=== PATIENT | female | born 1950 | race Caucasian/White ===

== ENCOUNTER → 2017-02-08 | Outpatient (CLI) | payer MEDICARE ==
[2017-02-08 10:29] LABS: Basophils # (A) 0.1 k/uL (0-0.2); Basophils % (A) 1 %; CH 28.7; CHCM 31.3; Eosinophils # (A) 0.3 k/uL (0-0.7); Eosinophils % (A) 3 %; HCT 46.2 % (34.0-46.0); HDW 2.84; HGB 15.3 gm/dL (11.4-16.0); Hypochromasia Slight; Luc # (Auto) 0.37; Luc % (Auto) 3; Lymphocytes # (A) 2.9 k/uL (1.0-4.8); Lymphocytes % (A) 25 %; MCH 30.5 pg (25.0-35.0); MCHC 33.1 g/dL (31.0-37.0); MCV 92.3 fL (80.0-100.0); Mean Platelet Volume 6.9; Monocytes # (A) 0.9 k/uL (0-1.0); Monocytes % (A) 8 %; Neutrophils # (A) 6.9 k/uL (1.3-7.7); Neutrophils % (A) 60 %; WBC 11.5 k/uL (3.8-10.6); WBC (Perox) 11.21
[2017-02-08 10:51] LABS: ALT 63 U/L (9-52); AST 47 U/L (14-36); Alkaline Phosphatase 192 U/L (38-126); Anion Gap 11 mmol/L; Blood Urea Nitrogen 15 mg/dL (7-17); Calcium 9.2 mg/dL (8.4-10.2); Carbon Dioxide 24 mmol/L (22-30); Chloride 108 mmol/L (98-107); Cholesterol 137 mg/dL (<200); Glucose 96 mg/dL (74-99); HDL Cholesterol 32 mg/dL (40-60); Non-African American GFR(MDRD) >60 (>60 ml/min/1.73 sqM); Potassium 3.7 mmol/L (3.5-5.1); Sodium 143 mmol/L (137-145); Total Bilirubin 0.3 mg/dL (0.2-1.3); Total Protein 6.8 g/dL (6.3-8.2)
== END | disposition home or self-care (01) ==
LOC: LABWHC1 09:33
PROVIDERS: ATTEND Family Medicine
DX: Z00.00 Encounter for general adult medical examination without abnormal findings (principal); F41.9 Anxiety disorder, unspecified; I10 Essential (primary) hypertension; M10.9 Gout, unspecified; Z86.718 Personal history of other venous thrombosis and embolism; Z13.29 Encounter for screening for other suspected endocrine disorder; Z13.220 Encounter for screening for lipoid disorders; Z13.21 Encounter for screening for nutritional disorder
CPT/HCPCS: 36415; 80053; 80061; 82306; 84443; 84550; 85025

== ENCOUNTER → 2018-05-12 | Outpatient (CLI) | payer MEDICARE ==
--- NOTE | 2018-05-15 13:42 | MM ---
Reason for exam: additional evaluation requested from prior study. Last mammogram was performed 4 years and 6 months ago. History: Patient is postmenopausal. Family history of breast cancer in paternal aunt and breast cancer in sister at age 66. Core biopsy, 2012. Benign US right guided VAD of the right breast, September 07, 2009. Cancelled Right US Needle Biopsy of the right breast, August 23, 2008. Benign left breast exciisional biopsy age 16. Physical Findings: Nurse did not find any significant physical abnormalities on exam. MG 3D Diag Mammo W/Cad GEOVANNY Bilateral CC, MLO, and XCCL view(s) were taken. Prior study comparison: November 02, 2013, right breast MG diagnostic mammo RT w CAD. February 19, 2013, [facility] DIGITAL RIGHT MAMMOGRAM w/CAD. The breast tissue is heterogeneously dense. This may lower the sensitivity of mammography. There is a 5 x 9 mm lower outer quadrant mass in the left breast 13 cm from the nipple that is new. There are benign-appearing bilateral calcifications. No suspicious right breast abnormality. ASSESSMENT: Incomplete: need additional imaging evaluation, BI-RAD 0 RECOMMENDATION: Ultrasound of the left breast.
--- NOTE | 2018-05-15 13:53 | USB ---
History: Patient is postmenopausal. Family history of breast cancer in paternal aunt and breast cancer in sister at age 66. Core biopsy, 2013. Benign US right guided VAD of the right breast, September 07, 2009. Cancelled Right US Needle Biopsy of the right breast, August 23, 2008. US Breast Limited LT Left limited breast ultrasound including focal area of concern, retroareolar and axilla demonstrates a 0.6 x 0.3 x 0.4 cm cystic cluster. Although no increased through transmission is seen and this finding is new on mammography. biopsy is recommended. Correlate with post biopsy images for concordant marker placement. These results were verbally communicated with the patient and result sheet given to the patient on 05/12/18. ASSESSMENT: Suspicious, BI-RAD 4 RECOMMENDATION: Ultrasound core biopsy of the left breast. Called Dr. Pritchett with mammographic findings and has scheduled an appointment for the patient for 05/19/18 at 10:[address] Pritchett. PRELIMINARY REPORT CALLED AND FAXED TO DR. PRITCHETT ON 05/12/18
== END | disposition home or self-care (01) ==
LOC: RADMAMWWP 06:53
PROVIDERS: ATTEND Surgery
DX: Z08 Encounter for follow-up examination after completed treatment for malignant neoplasm (principal); Z85.3 Personal history of malignant neoplasm of breast
CPT/HCPCS: 77066; 76642; G0279; 77062

== ENCOUNTER → 2018-06-16 | Day surgery (SDC) | payer MEDICARE ==
[2018-06-16 12:21] VITALS: RESP 16; BMI 43.5
[2018-06-16 13:32] VITALS: BP 129/81; PULSE 71; TEMP 98
--- NOTE | 2018-06-16 22:19 | USB ---
EXAMINATION TYPE: US biopsy breast VAD LT DATE OF EXAM: 06/16/2018 CLINICAL HISTORY: 60-year-old female R92.8 Abnormal mammogram. TECHNIQUE: Ultrasound guided core biopsy of the left breast. COMPARISON: 05/12/2018 FINDINGS: The procedure of ultrasound guided core biopsy was explained to the patient. Benefits, alternatives, and risks were discussed. An informed consent was then obtained. The left breast 5:00 cyst cluster versus complex cyst is targeted for biopsy. The patient was placed in supine positioning for imaging and for the procedure. The overlying skin was prepped and draped in usual sterile fashion. Lidocaine buffered with bicarbonate was used as anesthetic into the skin and subcutaneous tissue up to area of concern in the left breast. Under ultrasound guidance, a 13-gauge vacuum-assisted biopsy gun device was used to obtain 3 core samples. Following this, a ribbon clip was left in lesion. The patient tolerated the procedure well without any immediate complication. The patient was kept in the radiology department for short stay after the procedure and then discharged home in stable condition. IMPRESSION: Successful, uncomplicated ultrasound guided core biopsy of complex cyst versus cyst cluster in the 5:00 left breast; full pathology results to follow. Pathology Results: Benign LEFT BREAST, ULTRASOUND GUIDED CORE BIOPSY: Fibrocystic changes including sclerosing adenosis, mild usual type ductal hyperplasia, fibrosis, cysts, and apocrine metaplasia. Recommendation Follow up mammogram of the left breast in 6 months. EKATERINA
--- NOTE | 2018-06-17 07:11 | MM ---
Reason for exam: additional evaluation requested from abnormal screening. Last mammogram was performed 1 month ago. History: Patient is postmenopausal. Family history of breast cancer in paternal aunt and breast cancer in sister at age 66. Core biopsy, 2012. Benign US right guided VAD of the right breast, September 07, 2009. Cancelled Right US Needle Biopsy of the right breast, August 23, 2008. MG Diagnostic Mammo LT Wo CAD CC and ML view(s) were taken of the left breast. Prior study comparison: May 12, 2018, bilateral MG 3d diag mammo w/cad GEOVANNY. November 02, 2013, right breast MG diagnostic mammo RT w CAD. ASSESSMENT: Post procedure mammogram for marker placement RECOMMENDATION: Ultrasound of the left breast in 6 months. PENDING PATHOLOGY RESULTS.
== END | disposition home or self-care (01) ==
LOC: RADUSWWP 11:38
PROVIDERS: ATTEND Student in an Organized Health Care Education/Training Program
DX: N60.22 Fibroadenosis of left breast (principal); N60.82 Other benign mammary dysplasias of left breast; N60.02 Solitary cyst of left breast
CPT/HCPCS: 88305; 77065; 19083; A4648; J2001

== ENCOUNTER → 2019-01-12 | Outpatient (CLI) | payer MEDICARE ==
--- NOTE | 2019-01-12 10:23 | MM ---
Reason for exam: follow-up at short interval from prior study. Last mammogram was performed 7 months ago. History: Patient is postmenopausal. Family history of breast cancer in paternal aunt and breast cancer in sister at age 66. Benign US biopsy breast VAD LT of the left breast, June 16, 2018. Core biopsy, 2012. Benign US right guided VAD of the right breast, September 07, 2009. Cancelled Right US Needle Biopsy of the right breast, August 23, 2008. Physical Findings: Nurse did not find any significant physical abnormalities on exam. MG 3D Diag Mammo W/Cad LT CC and MLO view(s) were taken of the left breast. Prior study comparison: June 16, 2018, left breast MG diagnostic mammo LT wo CAD. May 12, 2018, bilateral MG 3d diag mammo w/cad GEOVANNY. There is chronic nodularity in the left breast. Benign secretory calcifications. 4 o'clock ribbon clip from biopsy 7 months ago. No significant new findings when compared with previous films. These results were verbally communicated with the patient and result sheet given to the patient on 01/12/19. ASSESSMENT: Benign, BI-RAD 2 RECOMMENDATION: Routine screening mammogram of both breasts in 5 months. Back on schedule.
== END ==
LOC: RADMAMWWP 09:37
PROVIDERS: ATTEND Student in an Organized Health Care Education/Training Program
DX: R92.8 Other abnormal and inconclusive findings on diagnostic imaging of breast (principal)
CPT/HCPCS: 77065; G0279; 77061

== ENCOUNTER → 2019-10-23 | Outpatient (CLI) | payer MEDICARE ==
--- NOTE | 2019-10-23 11:16 | MM ---
Reason for exam: screening (asymptomatic). Last mammogram was performed 9 months ago. History: Patient is postmenopausal. Family history of breast cancer in paternal aunt and breast cancer in sister at age 66. Benign US biopsy breast VAD LT of the left breast, June 16, 2018. Core biopsy, 2012. Benign US right guided VAD of the right breast, September 07, 2009. Cancelled Right US Needle Biopsy of the right breast, August 23, 2008. Physical Findings: A clinical breast exam by your physician is recommended on an annual basis and results should be correlated with mammographic findings. MG 3D Screening Mammo W/Cad Bilateral CC and MLO view(s) were taken. Prior study comparison: January 12, 2019, left breast MG 3d diag mammo w/cad LT. June 16, 2018, left breast MG diagnostic mammo LT wo CAD. The breast tissue is heterogeneously dense. This may lower the sensitivity of mammography. Stable benign calcifications. There is no discrete abnormality. No significant changes when compared with prior studies. ASSESSMENT: Benign, BI-RAD 2 RECOMMENDATION: Routine screening mammogram of both breasts in 1 year.
== END | disposition home or self-care (01) ==
LOC: RADMAMWWP 07:28
PROVIDERS: ATTEND Student in an Organized Health Care Education/Training Program
DX: Z12.31 Encounter for screening mammogram for malignant neoplasm of breast (principal)
CPT/HCPCS: 77063; 77067

== ENCOUNTER → 2020-06-09 | Outpatient (CLI) | payer MEDICARE ==
[2020-06-09 14:44] LABS: African American GFR (CKD) 65.2 (60.0-200.0); Albumin 4.8 g/dL (3.80-4.90); Anion Gap 11.1 mmol/L (4.00-12.00); Calcium 10.1 mg/dL (8.7-10.3); Carbon Dioxide 27.9 mmol/L (21.6-31.8); Chol/HDL Ratio 4.66; Globulin 2.4 g/dL (1.6-3.3); LDL Cholesterol,Calculated 125.6 mg/dL (0.0-131.0); Non-African American GFR(CKD) 56.2 (60.0-200.0); Potassium 3.6 mmol/L (3.5-5.5); Total Bilirubin 0.8 mg/dL (0.2-1.2); Total Protein 7.2 g/dL (6.2-8.2); VLDL Calculation 35.4 mg/dL (5.00-40.00)
[2020-06-09 14:49] LABS: Basophils % (A) 0.8 %; Eosinophils # (A) 0.22 X 10*3/uL (0.04-0.35); Eosinophils % (A) 1.8 %; HCT 53.6 % (37.2-46.3); HGB 17.8 g/dL (12.0-15.0); Lymphocytes # (A) 3.17 X 10*3/uL (0.90-5.00); Lymphocytes % (A) 26.6 %; MCH 30.6 pg (27.0-32.0); MCHC 33.2 g/dL (32.0-37.0); MCV 92.3 fL (80.0-97.0); Mean Platelet Volume 10.7 fL (9.5-12.2); Monocytes # (A) 1.19 X 10*3/uL (0.20-1.00); Neutrophils # (A) 7.21 X 10*3/uL (1.80-7.70); Neutrophils % (A) 60.5 %; Platelet Count 343 X 10*3/uL (140-440); RBC 5.81 X 10*6/uL (4.10-5.20); RDW 13.2 % (11.5-14.5); WBC 11.92 X 10*3/uL (4.50-10.00)
[2020-06-09 19:11] LABS: Hemoglobin A1C 6.4 % (4.0-6.0)
== END | disposition home or self-care (01) ==
LOC: LABWHC1 08:54
PROVIDERS: ATTEND Internal Medicine
DX: G47.30 Sleep apnea, unspecified (principal); R73.03 Prediabetes; Z13.29 Encounter for screening for other suspected endocrine disorder; Z13.220 Encounter for screening for lipoid disorders; R06.2 Wheezing; Z87.39 Personal history of other diseases of the musculoskeletal system and connective tissue
CPT/HCPCS: 36415; 80053; 80061; 83036; 84443; 85025

== ENCOUNTER → 2021-11-17 | Outpatient (CLI) | payer MEDICARE | END | disposition home or self-care (01) | LOC: LABWHC1 10:01 | PROVIDERS: ATTEND Internal Medicine | DX: K52.9 Noninfective gastroenteritis and colitis, unspecified (principal) | CPT/HCPCS: 83630; 87045; 87046; 87324; 87338 ==

== ENCOUNTER → 2021-11-30 | Outpatient (CLI) | payer MEDICARE ==
--- NOTE | 2021-11-30 08:18 | BD ---
EXAMINATION TYPE: Axial Bone Density DATE OF EXAM: 11/30/2021 COMPARISON: 10.02.2001 CLINICAL HISTORY: 71 years year old Female. ICD-10 CODE: Z13.820 ENCOUNTER FOR SCREENING FOR OSTEOPO VINH Height: 66IN Weight: 275 FRAX RISK QUESTIONS: Family History (Parent hip fracture): YES Glucocorticoids (More than 3mos): YES (Ex: prednisone, prednisolone, methylprednisolone, dexamethasone, and hydrocortisone). Secondary Osteoporosis: RISK FACTORS HISTORY OF: Active: YES Postmenopausal woman: YES Lost more than 2 inches in height since high school: YES MEDICATIONS: Prednisone or other steroids: STEROID SALVE How Lon YEARS Additional Medications: BP MED, CHOLESTEROL MED, BLOOD THINNER, VITAMIN D Additional History: EXAM MEASUREMENTS: Bone mineral densitometry was performed using the [employer] System. Bone mineral density as measured about the Lumbar spine is: ----- L1-L4(G/cm2): 1.260 T Score Values are as follows: ----- L1: -0.2 ----- L2: 0.3 ----- L3: 1.6 ----- L4: 0.7 ----- L1-L4: 0.7 PREVIOUS 10-02-01 UNAVAILABLE Bone mineral density about the R hip (g/cm2): 0.909 Bone mineral density about the L hip (g/cm2): 0.895 T Score values are as follows: -----R Neck: -1.3 -----L Neck: -1.2 -----R Total: -0.8 -----L Total: -0.9 PREVIOUS 10-02-01 UNAVAILABLE FRAX%s: The graph provided illustrates a 21.5% chance for a major osteoporotic fx and a 8.7% chance f or the hips probability for fx in 10 years time. IMPRESSION: Osteopenia (T Score between -2.5 and -1). There is slightly increased risk of fracture and the patient may be considered for treatment. Re-Screen 2-5 years. NOTE: T-SCORE=SD OF THE YOUNG ADULT MEAN.
== END | disposition home or self-care (01) ==
LOC: RADBDWWP 07:21
PROVIDERS: ATTEND Internal Medicine
DX: M85.89 Other specified disorders of bone density and structure, multiple sites (principal)
CPT/HCPCS: 77080

== ENCOUNTER → 2022-07-18 | Outpatient (CLI) | payer MEDICARE ==
--- NOTE | 2022-07-18 11:46 | MR ---
EXAMINATION TYPE: MR knee RT wo con DATE OF EXAM: 07/18/2022 COMPARISON: Outside right knee x-ray July 10, 2022 HISTORY: Rt knee pain and swelling, time not specified. No prior surgery per patient. TECHNIQUE: Multiplanar, multisequence images of the knee is performed without IV contrast. FINDINGS: MEDIAL MENISCUS: Truncated appearance Posterior horn with abnormal increased signal extending to lexi cular surface. LATERAL MENISCUS: Horizontal increased signal anterior horn. Truncated appearance with abnormal signa l through the central body and posterior horn. CRUCIATE LIGAMENTS: The anterior and posterior cruciate ligaments are intact and unremarkable. COLLATERAL LIGAMENTS: The medial collateral ligament and lateral collateral ligament complex are inta ct and unremarkable. EXTENSOR MECHANISM: Visualized quadriceps and patellar tendons are intact. EFFUSION: Moderate size nonsimple suprapatellar joint effusion suggestive of synovitis. POPLITEAL CYST: No popliteal/collins cyst. TRICOMPARTMENT SPACES: Moderate narrowing with mild spurring patellofemoral compartment. Mild to mode rate narrowing and spurring medial and lateral tibiofemoral compartments. CARTILAGE: Chondromalacia patella with full-thickness cartilaginous loss along the superior aspect of the posterior patella. Focal cartilaginous loss distal lateral femoral condyle sagittal image 27. Ca rtilaginous thinning in the medial tibiofemoral compartment with areas of full-thickness loss. BONE MARROW SIGNAL: Subchondral cystic change posterior central tibial plateau. OTHER: Septated and ill-defined fluid extending posteriorly from the posterior horn lateral meniscus. IMPRESSION: 1. Tricompartment degenerative changes that are at least fairly moderate in appearance as detailed ab ove. 2. Moderate size suprapatellar joint effusion with suggestion of synovitis. 3. Full-thickness tear medial meniscus involving the posterior horn and central body. 4. Full-thickness tear lateral meniscus involving at least the posterior horn and central body.
== END | disposition home or self-care (01) ==
LOC: RADMRIMAIN 10:32
PROVIDERS: ATTEND Orthopaedic Surgery
DX: M17.11 Unilateral primary osteoarthritis, right knee (principal); M23.351 Other meniscus derangements, posterior horn of lateral meniscus, right knee; M23.321 Other meniscus derangements, posterior horn of medial meniscus, right knee; M25.461 Effusion, right knee

== ENCOUNTER → 2023-01-03 | Outpatient (CLI) | payer MEDICARE ==
[2023-01-03 21:01] LABS: Anion Gap 10.5 mmol/L (4.00-12.00); Carbon Dioxide 28.5 mmol/L (21.6-31.8); Potassium 4.2 mmol/L (3.5-5.5)
[2023-01-03 22:48] LABS: Basophils # (A) 0.11 X 10*3/uL (0.00-0.10); Basophils % (A) 0.9 %; Eosinophils % (A) 2.6 %; HCT 46.1 % (37.2-46.3); HGB 15.1 d/dL (12.0-15.0); Lymphocytes # (A) 3.05 X 10*3/uL (0.90-5.00); MCH 30.4 pg (27.0-32.0); MCHC 32.8 d/dL (32.0-37.0); MCV 92.8 FL (80.0-97.0); Mean Platelet Volume 10.5 FL (9.5-12.2); Monocytes % (A) 9.4 %; NRBC Per 100 WBC 0 X 10*3/uL (0.00-0.01); Neutrophils % (A) 60.6 %; Platelet Count 315 X 10*3/uL (140-440); RBC 4.97 X 10*6/uL (4.10-5.20); RDW 13.5 % (11.5-14.5); WBC 11.72 X 10*3/uL (4.50-10.00)
== END | disposition home or self-care (01) ==
LOC: LABPAT 12:24
PROVIDERS: ATTEND Orthopaedic Surgery
DX: Z01.812 Encounter for preprocedural laboratory examination (principal); M23.91 Unspecified internal derangement of right knee
CPT/HCPCS: 80051; 85025

== ENCOUNTER 2023-01-31 09:04 | Day surgery (SDC) | payer MEDICARE ==
[2023-01-24 11:33] VITALS: BMI 39.5
--- NOTE | 2023-01-30 15:35 | HP ---
HISTORY AND PHYSICAL DATE OF SURGERY: 01/31/2023. HISTORY OF PRESENT ILLNESS: Haylee Douglas is a 73-year-old patient, seen with progressive right knee pain. We discussed options for treatment. She elected to proceed with right knee arthroscopy. Consent regarding procedure was obtained. Medical clearance was provided. PAST MEDICAL HISTORY: Cardiovascular disease, hypertension, hyperlipidemia, and dha-oxyexsv-fbiedibbl diabetes. PAST SURGICAL HISTORY: Noncontributory. DAILY MEDICATIONS: 1. Atorvastatin. 2. Eliquis. 3. Furosemide. 4. Losartan. 5. Metoprolol. 6. Nystatin. ALLERGIES: None. SOCIAL HISTORY: She denies tobacco use. PHYSICAL EVALUATION OF THE RIGHT KNEE: Range of motion is -2/3 to 115 degrees. There is ywsu-dd-soxdzcrq effusion present. Tenderness along the medial and lateral joint lines. Positive medial Ronan's. Positive lateral Ronan's. Ligaments are stable. Hip rotation is without pain. Distal neurovascular exam is intact. IMAGING STUDIES: Radiographs of the right knee revealed moderate osteoarthritis. MRI right knee revealed medial and lateral meniscal tears along with an effusion and osteoarthritic changes. IMPRESSION: 1. Internal derangement of right knee with medial and lateral meniscal tears. 2. Hypertension. 3. Hyperlipidemia. 4. Cardiovascular disease. 5. Moy-nrldhik-kyluxmzwp diabetes. PLAN: Right knee arthroscopy with partial medial/lateral meniscectomy and debridement. MMODL / IJN: [id number] /
[~2023-01-31 09:04] MED LIST: DEXAMETHASONE SOD PHOSPHATE 4 MG/ML 1 ML VIAL IV ONE; HYDROmorphone 0.5 MG/0.5 ML SYRINGE IVP PRN; LACTATED RINGERS 1,000 ML IV SCH; LIDOCAINE 1% (10MG/ML) FOR IV START INTRADERMA PRN; ONDANSETRON 4 MG/2 ML VIAL IVP ONE
[2023-01-31 09:50] LABS: Glucose,Whole Blood 104 mg/dL (70-110)
[2023-01-31] MEDS ORDERED: fentaNYL (PF) 50 MCG/ML 2 ML AMP ONE (10:18)
[2023-01-31] MEDS ORDERED: LIDOCAINE 1% INJ 10MG/ML (20 ML MDV) ONE (10:18)
[2023-01-31] MEDS ORDERED: PROPOFOL 10 MG/ML 20 ML VIAL IV ONE (10:18)
[2023-01-31] MEDS ORDERED: MIDAZOLAM 2 MG/2 ML VIAL ONE (10:18)
[2023-01-31] MEDS ORDERED: KETOROLAC 15 MG/ML 1 ML VIAL ONE (10:18)
[2023-01-31] MEDS ORDERED: BUPIVACAINE (PF) 0.25% 30 ML VIAL SQ ONE ×2 (10:28→10:56)
[2023-01-31 11:19] VITALS: TEMP 97.6
[2023-01-31 11:20] LABS: Glucose,Whole Blood 106 mg/dL (70-110)
--- NOTE | 2023-01-31 11:26 | P.OP ---
Date of Procedure: 01/31/23 Preoperative Diagnosis: Internal derangement right knee Postoperative Diagnosis: 1. Tear medial and lateral meniscus right knee 2. Grade 4 chondromalacia lateral femoral condyle right knee 3. Reactive synovitis medial, lateral and suprapatellar compartments right knee 4. Grade 3 chondromalacia medial femoral condyle right Procedure(s) Performed: 1. Arthroscopic partial medial and lateral meniscectomy right knee 2. Arthroscopic microfracture lateral femoral condyle right knee 3. Arthroscopic partial synovectomy medial, lateral and suprapatellar compartments right knee 4. Arthroscopic chondroplasty medial femoral condyle right knee Anesthesia: GREGORYA, local Surgeon: Alvaro Nieto Estimated Blood Loss (ml): 12 Pathology: none sent Condition: stable Disposition: PACU Indications for Procedure: 73-year-old patient seen with progressive right knee pain. After treatment options were discussed, she elected to proceed with arthroscopy. Operative Findings: See description of procedure Description of Procedure: Patient was taken to the operative suite. Patient underwent a general anesthetic by the department of anesthesia. Patient was given preoperative antibiotics. The right lower extremity was placed in a well-padded arthroscopic leg robertson. The right leg was prepped and draped in the normal sterile orthopedic fashion. A lateral parapatellar and suprapatellar incision was made. Trochars were inserted. Arthroscopy was initiated. Suprapatellar pouch revealed diffuse thick reactive synovitis. The patellofemoral joint appeared to articulate congruently. There was grade 2 chondromalacia of the patella with no tears. The scope was guided into the medial gutter. No loose bodies or plica were identified. The scope was then guided into the medial compartment. A medial parapatellar incision was made. Trocar inserted followed by probe. There was a complex tear involving the posterior horn medial meniscus. There were grade 2/3 chondromalacia changes medial femoral condyle osteochondral flap tears and grade 4 chondromalacia of the medial tibial plateau with exposed bone. There was thick reactive some-itis anteriorly. I performed a partial medial meniscectomy getting down to stable meniscal tissue. I performed a chondroplasty of the medial femoral condyle getting down to stable osteochondral tissue. I performed a partial synovectomy decompressing the reactive synovitis. The residual meniscus was stable. There was grade 3 chondral malacia medial femoral condyle but stable. There was good decompression of the reactive synovitis anteriorly. Scope and probe were then guided into the intercondylar notch. Cruciates were identified, probed and found to be stable. The scope and probe were then guided into lateral compartment. There was a complex tear involving the midbody posterior horn lateral meniscus. There were grade 4 chondromalacia changes lateral femoral condyle with exposed bone. There was thick reactive synovitis anteriorly. I performed a partial lateral meniscectomy getting down to stable meniscal tissue. I performed a partial synovectomy decompressing reactive synovitis anteriorly. I introduced a microfracture awl and performed a microfracture to the area of exposed bone lateral femoral condyle penetrating the bone with resultant bleeding at the microfracture site. The residual meniscus was probed and was found to be stable. There was good decompression of the synovitis. The residual osteochondral surface was stable. The scope was in guided back into the suprapatellar compartment. I introduced a motorized shaver into the suprapatellar compartment. I debrided some piecemeal fragments of meniscus I encountered. I performed a partial synovectomy. The shaver was now removed. There was good decompression of the synovitis. I now t ook one more look around the entire knee, no residual debris. Instruments were now removed from the joint. The joint was infiltrated with .25% Marcaine. Steri-Strips were applied to the portal sites. Sterile dressings were applied. The patient was placed into a CARRILLO hose. No tourniquet was utilized. The patient was awakened, transferred to a bed and taken to recovery stable satisfactory condition.
[2023-01-31 11:56] VITALS: RESP 18
[2023-02-04 02:37] VITALS: BP 134/67; PULSE 78
== END 2023-01-31 12:37 | disposition home or self-care (01) ==
LOC: OR 09:04
PROVIDERS: ATTEND Orthopaedic Surgery
DX: S83.241A Other tear of medial meniscus, current injury, right knee, initial encounter (principal); S83.281A Other tear of lateral meniscus, current injury, right knee, initial encounter; M94.261 Chondromalacia, right knee; M65.861 Other synovitis and tenosynovitis, right lower leg; I10 Essential (primary) hypertension; E78.5 Hyperlipidemia, unspecified; E11.9 Type 2 diabetes mellitus without complications; I25.10 Atherosclerotic heart disease of native coronary artery without angina pectoris; Z79.01 Long term (current) use of anticoagulants; Z79.84 Long term (current) use of oral hypoglycemic drugs; Z79.899 Other long term (current) drug therapy; X58.XXXA Exposure to other specified factors, initial encounter
CPT/HCPCS: 29880; 29879; J2250; J1100; J0690; J2405; J2001; J3010; J1885; J2704; J0665

== ENCOUNTER → 2023-02-06 | Outpatient (CLI) | payer MEDICARE ==
--- NOTE | 2023-02-06 10:46 | XR ---
EXAMINATION TYPE: XR sternum DATE OF EXAM: 02/06/2023 COMPARISON: NONE HISTORY: Palpable abnormality TECHNIQUE: 2 views submitted FINDINGS: Sternum is intact. There is no obstructive change or acute fracture. No osseous abnormality . IMPRESSION: No osseous abnormality.
[2023-02-06 15:39] LABS: Basophils # (A) 0.09 X 10*3/uL (0.00-0.10); Basophils % (A) 0.9 %; Eosinophils # (A) 0.26 X 10*3/uL (0.04-0.35); Eosinophils % (A) 2.6 %; HCT 46.3 % (37.2-46.3); HGB 14.9 d/dL (12.0-15.0); Lymphocytes # (A) 2.74 X 10*3/uL (0.90-5.00); Lymphocytes % (A) 26.9 %; MCH 29.9 pg (27.0-32.0); MCHC 32.2 d/dL (32.0-37.0); Mean Platelet Volume 10.3 FL (9.5-12.2); Monocytes # (A) 0.77 X 10*3/uL (0.20-1.00); Monocytes % (A) 7.6 %; NRBC Per 100 WBC 0 X 10*3/uL (0.00-0.01); Neutrophils # (A) 6.26 X 10*3/uL (1.80-7.70); Neutrophils % (A) 61.5 %; Platelet Count 317 X 10*3/uL (140-440); RBC 4.98 X 10*6/uL (4.10-5.20); RDW 13.7 % (11.5-14.5); WBC 10.17 X 10*3/uL (4.50-10.00)
[2023-02-06 16:41] LABS: ALT 26 U/L (8-44); AST 24 U/L (13-35); Albumin 3.9 d/dL (3.8-4.9); Alkaline Phosphatase 155 U/L (41-126); Calcium 10.5 mg/dL (8.7-10.3); Carbon Dioxide 29.2 mmol/L (21.6-31.8); Chloride 106 mmol/L (96-109); Chol/HDL Ratio 2.79 Ratio; Globulin 2.6 d/dL (1.6-3.3); Glucose 114 mg/dL (70-110); LDL Cholesterol,Calculated 64.4 mg/dL (0.0-131.0); Sodium 144 mmol/L (135-145); Total Bilirubin 0.8 mg/dL (0.3-1.2); Total Protein 6.5 d/dL (6.2-8.2)
== END | disposition home or self-care (01) ==
LOC: LABWHC1 09:59
PROVIDERS: ATTEND Internal Medicine
DX: Z00.00 Encounter for general adult medical examination without abnormal findings (principal); I10 Essential (primary) hypertension; G47.33 Obstructive sleep apnea (adult) (pediatric); E78.5 Hyperlipidemia, unspecified; Q24.8 Other specified congenital malformations of heart; R07.89 Other chest pain; R73.03 Prediabetes
CPT/HCPCS: 36415; 71120; 80053; 80061; 82306; 83036; 85025

== ENCOUNTER → 2023-08-14 | Outpatient (CLI) | payer MEDICARE ==
--- NOTE | 2023-08-15 19:08 | MM ---
Reason for Exam: Screening (asymptomatic). Last mammogram was performed 1 year(s) and 1 month(s) ago. Patient History: Menarche at age 17. First Full-Term at age 24. Postmenopausal. 2012, Core Biopsy. 06/16/2018, Benign Core Biopsy on the left side. 09/07/2009, Benign Core Biopsy on the right side. 08/23/2008, Cancelled Right US Needle Biopsy on the right side. Paternal aunt (Kadie) had breast cancer, age 70. Maternal cousin (Tania) had breast cancer, age 43. Sister had breast cancer, age 66. Risk Values: Pricila 5 year model risk: 4.7%. NCI Lifetime model risk: 10.0%. Prior Study Comparison: 10/23/2019 Bilateral Screening Mammogram, [facility]. 05/16/2021 Bilateral Screening Mammogram, [facility]. 07/03/2022 Bilateral MG 3D screening mammo w/cad, [facility]. Tissue Density: The breasts are heterogeneously dense, which may obscure small masses. Findings: Analyzed By CAD. Bilateral areas of asymmetric density remain unchanged. Bilateral benign secretory calcifications are also redemonstrated. There is no suspicious group of microcalcifications or new suspicious mass in either breast. Overall Assessment: Benign, BI-RAD 2 Management: Screening Mammogram of both breasts in 1 year. See note below in regards to patient's increased 5 year Pricila score. Patient should continue monthly self-breast exams. A clinical breast exam by your physician is recommended on an annual basis. This exam should not preclude additional follow-up of suspicious palpable abnormalities. Note on Pricila scores and lifetime risk: 1. A Pricila score greater than 3% is considered moderate risk. If this is the case, consider specialist referral to assess eligibility for a risk reducing agent. 2. If overall lifetime risk for the development of breast cancer is 20% or higher, the patient may qualify for future screening with alternating mammogram and breast MRI. Electronically signed and approved by: Taylor Murrieta M.D. Radiologist
== END | disposition home or self-care (01) ==
LOC: RADMAMWWP 07:26
PROVIDERS: ATTEND Internal Medicine
DX: Z12.31 Encounter for screening mammogram for malignant neoplasm of breast (principal); Z78.0 Asymptomatic menopausal state; Z80.3 Family history of malignant neoplasm of breast
CPT/HCPCS: 77063; 77067

== ENCOUNTER → 2023-08-16 | Outpatient (CLI) | payer MEDICARE ==
[2023-08-16 16:28] LABS: Basophils # (A) 0.09 X 10*3/uL (0.00-0.10); Basophils % (A) 0.9 %; Eosinophils # (A) 0.22 X 10*3/uL (0.04-0.35); Eosinophils % (A) 2.2 %; HCT 49.4 % (37.2-46.3); HGB 15.8 g/dL (12.0-15.0); Lymphocytes # (A) 2.65 X 10*3/uL (0.90-5.00); MCH 30.2 pg (27.0-32.0); MCV 94.5 FL (80.0-97.0); Mean Platelet Volume 10.6 FL (9.5-12.2); Monocytes # (A) 1.06 X 10*3/uL (0.20-1.00); Monocytes % (A) 10.4 %; NRBC Per 100 WBC 0 X 10*3/uL (0.00-0.01); Neutrophils # (A) 6.14 X 10*3/uL (1.80-7.70); Platelet Count 283 X 10*3/uL (140-440); RBC 5.23 X 10*6/uL (4.10-5.20); RDW 13.6 % (11.5-14.5); WBC 10.21 X 10*3/uL (4.50-10.00)
[2023-08-16 16:35] LABS: Albumin/Globulin Ratio 1.43 Ratio (1.60-3.17); Bilirubin, Conjugated 0.25 mg/dL (0.20-0.40); Bilirubin,Unconjugated 0.55 mg/dL (0.20-1.00); Globulin 2.8 g/dL (1.6-3.3); Total Bilirubin 0.8 mg/dL (0.3-1.2); Total Protein 6.8 g/dL (6.2-8.2)
== END | disposition home or self-care (01) ==
LOC: LABWHC1 07:04
PROVIDERS: ATTEND Internal Medicine
DX: D72.829 Elevated white blood cell count, unspecified (principal); N39.490 Overflow incontinence; R74.8 Abnormal levels of other serum enzymes; R73.03 Prediabetes
CPT/HCPCS: 36415; 80076; 83036; 85025

== ENCOUNTER → 2024-09-14 | Outpatient (CLI) | payer MEDICARE ==
[2024-09-14 10:38] LABS: Blood Urea Nitrogen 12.3 mg/dL (9.0-27.0); Calcium 9.5 mg/dL (8.7-10.3); Carbon Dioxide 22.7 mmol/L (21.6-31.8); Chloride 104 mmol/L (96-109); Glucose 163 mg/dL (70-110); Potassium 4.2 mmol/L (3.5-5.5); Sodium 138 mmol/L (135-145)
[2024-09-14 13:38] LABS: NT-Pro-B-Type Natriuretic Pept 81 pg/mL (0-450)
== END | disposition home or self-care (01) ==
LOC: LABWHC1 07:05
PROVIDERS: ATTEND Physician Assistant
DX: I42.2 Other hypertrophic cardiomyopathy (principal)
CPT/HCPCS: 36415; 80048; 83880